=== PATIENT | female | born 1965 | race Caucasian/White ===

== ENCOUNTER 2023-08-01 11:29 | Emergency (ER) | payer OTHER, SELFPAY ==
[2023-08-01 13:00] VITALS: BP 165/87; PULSE 83; RESP 16; TEMP 36.6; O2SAT 100
== END 2023-08-01 12:33 | disposition home or self-care (01) ==
LOC: EXPCOLL 11:34
PROVIDERS: Emergency Provider Nurse Practitioner Family
DX: L02.416 Cutaneous abscess of left lower limb (principal)
CPT/HCPCS: 10061; 87070; 87075; 87076; 87205; 99213; G0463

== ENCOUNTER 2023-08-04 11:36 | Emergency (ER) | payer OTHER, SELFPAY ==
--- NOTE | 2023-08-04 11:52 | ED.WOUNDLAC ---
HPI - Wound/Laceration General Chief Complaint: Wound/Laceration Stated Complaint: f/u guaze removal from wound Time Seen by Provider: 08/04/23 12:09 Source: patient and RN notes reviewed Mode of arrival: ambulatory Limitations: no limitations History of Present Illness HPI narrative: 58 year old female presents with concern for packing removal. Reports 3 days ago she had an abscess on her left thigh lanced and packed at this urgent care. She reports she has been taking her clindamycin as directed reports pain is no longer present, she has been keeping a bandage on it and having small amount of serosanguineous drainage. She denies fever, chills, sweats. Denies redness, warmth, tenderness Related Data Home Medications Medication Instructions Recorded Confirmed No Home Medications 08/04/23 08/04/23 Allergies Allergy/AdvReac Type Severity Reaction Status Date / Time No Known Allergies Allergy Mild Unverified 03/17/13 09:15 Review of Systems Review of Systems: CONSTITUTIONAL: Denies malaise, chills, sweats, or fever. SKIN: Reports healing abscess to the left thigh MUSCULOSKELETAL: Denies muscle skeletal pain NEUROLOGIC: Denies numbness, weakness All systems reviewed & are unremarkable except as noted in HPI and below PMFSH Family History Family History (Updated 09/10/17 @ 11:17 by DOCTOR UNKNOWN) Grandparent Diabetes mellitus Hypertension Family history of cardiovascular disease Cerebrovascular accident Father Cerebrovascular accident Social History Social History Smoking status: Current every day smoker Alcohol intake: current Comments At time of signature, agree with nursing past medical, surgical, social and family history. There is no relevant family history pertinent to the presenting complaint Exam Narrative: GENERAL: Well-appearing, well-nourished, and in no acute distress. HEAD: Normocephalic, atraumatic. EYES: PERRLA, conjunctivae clear, and EOMI. ENT: Mucous membranes moist. Oropharynx without edema, erythema or lesions. NECK: Supple. No lymphadenopathy CHEST: Clear to auscultation. No respiratory distress. HEART: Regular rate and rhythm. SKIN: Warm, dry. Packed incision noted to the left inner thigh without surrounding erythema, warmth, tenderness, edema, induration noted upon palpation without tenderness. Packing removed without drainage noted NEURO: Alert and oriented x3. PSYCH: Normal mood and affect Course Course Emergency Course: Patient is aware of diagnosis, understands and agrees to treatment plan. Anticipatory guidance given. Patient agrees to follow-up as directed and is aware of reasons to seek care at the emergency department. Portions of this record may have been created with voice recognition software Level of Care: Express Care Visit Vital Signs Vital signs: Reviewed. MDM - Wound/Laceration MDM Narrative Medical decision making narrative: Exam findings show no acute concerns or changes; patient is non-toxic appearing and is in no distress. Patient is appropriate for outpatient treatment and follow-up. Differential Diagnosis Differential diagnosis: Likely laceration, abrasion and avulsion of skin Critical Care Time Critical Care Time Critical Care Time: No Discharge Plan Discharge Clinical Impression: Abscess packing removal Patient Disposition: Home, Self-Care Condition: Stable Instructions: Antibiotic Form, Abscess Follow-up (ED) Additional Instructions: 1) Please follow-up with your primary care doctor for further evaluation. 2) If you have any urgent concerns please go to the ER. 3) Please continue taking antibiotic as directed. 4) Please read and follow information included in discharge instructions. Prescriptions: No Action No Home Medications Follow-up/Referrals: PHYSICIAN,NIGHT ASSISTANT [Primary Care Provider] - Time of Disposition: 12:20
[2023-08-04 11:53] VITALS: BP 146/86; PULSE 85; RESP 16; TEMP 35.1; O2SAT 99
[2023-08-04 12:02] VITALS: BP 146/86; PULSE 85; RESP 16; TEMP 35.1; O2SAT 99
== END 2023-08-04 12:26 | disposition home or self-care (01) ==
PROVIDERS: Emergency Provider Nurse Practitioner
DX: Z48.01 Encounter for change or removal of surgical wound dressing (principal)
CPT/HCPCS: 99211; 99212; G0463